=== PATIENT | female | born 1990 | race African-American/Black ===

== ENCOUNTER 2017-02-20 08:33 | Emergency (ER) | payer OTHER ==
[~2017-02-20] VITALS: Ht 165.1 cm; Wt 70.8 kg
--- NOTE | 2017-02-20 11:26 | ED HEADACHE COMPLAINT ---
History of Present Illness General Chief Complaint: Headache Stated Complaint: PATEL AND VOMITING SINCE LAST PM Source: patient Exam Limitations: no limitations Vital Signs & Intake/Output Vital Signs & Intake/Output Vital Signs Date Time Temp Pulse Resp B/P B/P Pulse O2 O2 Flow FiO2 Mean Ox Delivery Rate 02/20 1234 98.4 61 16 106/63 100 Room Air 02/20 1114 98 Room Air 02/20 0840 97.8 86 20 109/67 96 Room Air Allergies Coded Allergies: No Known Allergies (02/20/17) Reconcile Medications Butalb/Acetaminophen/Caffeine (Serddh-Erhpaokx-Zjfs 50-325-40) 50 MG-325 MG-40 MG TABLET 1-2 TAB PO Q8P PRN HEADACHE Cyclobenzaprine HCl 10 MG TABLET 1 TAB PO TID HEADACHE Sumatriptan Succinate (Imitrex) 50 MG TABLET 1 TAB PO AD HEADACHES Triage Note: PT TO ED C/O HEADACHE SINCE LAST NIGHT. TOOK TYLENOL PM WITH NO RELIEF. "IT'S NOT LIKE A MIGRAINE, I DON'T KNOW WHAT'S GOING ON, I WANT THEM TO DO A CAT SCAN". +PHOTOSENSITIVITY, +N/V. Triage Nurses Notes Reviewed? yes Onset: Abrupt Duration: day(s): Timing: recent history Quality/Severity: moderate, severe No Modifying Factors: none : No Patient currently breastfeeds: No HPI: 27-year-old female comes into the emergency room with complaints of headache for the past few days getting progressively worse. Pain is located on the top of her head. Sharp. She denies any falls or trauma. She reports some associated photophobia and phonophobia. Denies any vision loss. Denies any fever. She's had some associated nausea vomiting. She reports that she had a history of headaches when she was a child but she has not had any recently. Nothing seems to make the symptoms better. She took a Tylenol PM last night with no relief. She comes in for further evaluation and requesting CT scan of head. (Parvez Basilio) Past History Travel History Traveled to [place] past 21 day No Medical History Any Pertinent Medical History? none Surgical History Surgical History: Psychosocial History What is your primary language Belarusian Tobacco Use: Quit >30 days ago ETOH Use: denies use Illicit Drug Use: denies illicit drug use Family History Hx Contributory? No (Parvez Basilio) Review of Systems Review of Systems Constitutional: Reports: no symptoms. Eyes: Reports: no symptoms. Ears, Nose, Throat, Mouth: Reports: no symptoms. Respiratory: Reports: no symptoms. Cardiovascular: Reports: no symptoms. Gastrointestinal/Abdominal: Reports: see HPI. Genitourinary: Reports: no symptoms. Musculoskeletal: Reports: no symptoms. Skin: Reports: no symptoms. Neurological/Psychological: Reports: see HPI. Hematologic/Endocrine: Reports: no symptoms. Endocrine: Reports: no symptoms. Immunologic/Allergic: Reports: no symptoms. All Other Systems: Reviewed and Negative (Parvez Basilio) Physical Exam Physical Exam General Appearance: well developed/nourished, no apparent distress, alert, awake Head: atraumatic, normal appearance Eyes: Bilateral: normal appearance, PERRL, EOMI. Ears, Nose, Throat: normal ENT inspection, hearing grossly normal Neck: normal inspection, full range of motion Respiratory: normal breath sounds, no respiratory distress Cardiovascular: regular rate/rhythm Back: normal inspection Extremities: normal inspection, normal range of motion, no edema Psychiatric: awake, alert, oriented x 3 Cranial Nerves: normal hearing, normal speech, PERRL Coordination/Gait: normal finger to nose, normal gait Motor/Sensory: no motor/sensory deficits Skin: intact, normal color Core Measures Sepsis Present: No Sepsis Focused Exam Completed? No (Parvez Basilio) Progress Differential Diagnosis: carotid dissection, cav sinus thromb, cluster PATEL, encephalitis, IC mass/tumor, intracranial Hem., meningitis, migraine PATEL, musculoskeletal pain, sinusitis, SSS thrombosis, subarach. Hem., tension PATEL, temporal arteritis, TMJ syndrome, viral cephalgia Plan of Care: Orders Procedure Date/time Status COMPREHENSIVE METABOLIC PANEL 02/20 1126 Complete CBC WITHOUT DIFFERENTIAL 02/20 1126 Complete URINE 02/20 0844 Complete Laboratory Tests 02/20/17 1147: Anion Gap 8, Estimated GFR > 60, BUN/Creatinine Ratio 20.0, Glucose 98, Calcium 9.7, Total Bilirubin 1.9 H, AST 23, ALT 34, Alkaline Phosphatase 49, Total Protein 7.3, Albumin 4.3, Globulin 3.0, Albumin/Globulin Ratio 1.4, CBC w Diff NO MAN DIFF REQ, RBC 4.74, MCV 83.5, MCH 27.9, RDW 13.3, MPV 7.9, Gran % 57.9, Lymphocytes % 29.9, Monocytes % 8.8, Eosinophils % 3.1, Basophils % 0.3, Absolute Granulocytes 3.9, Absolute Lymphocytes 2.0, Absolute Monocytes 0.6, Absolute Eosinophils 0.2, Absolute Basophils 0, PUBS MCHC 33.5, Urine Test NEGATIVE Diagnostic Imaging: Viewed by Me: CT Scan. Discussed w/RAD: CT Scan. Radiology Impression: PATIENT: DAVID LANGFORD PRESENT AGE: 27 PATIENT ACCOUNT NO: [id number] : 89 LOCATION: [facility] ORDERING PHYSICIAN: Parvez BOLAÑOS SERVICE DATE: 02/20/17 EXAM TYPE : CAT - CT HEAD WO IV CONTRAST EXAMINATION: CT HEAD WITHOUT CONTRAST CLINICAL INFORMATION: 27-year-old woman with severe headache. COMPARISON: None TECHNIQUE: Contiguous axial imaging was performed from the skull base to vertex without intravenous administration of contrast. DLP: 611 mGy-cm FINDINGS: There is no evidence of acute intracranial hemorrhage or territorial infarction. No abnormal mass effect or midline shift is seen. Benoit to white matter differentiation is well preserved. No extra-axial fluid collections are identified. The ventricles are normal in size. There is no abnormal attenuation within the brain parenchyma. The osseous structures and soft tissues are normal. The mastoid air cells and visualized portions of the paranasal sinuses are well aerated. IMPRESSION: No acute intracranial pathology. DICTATED BY: Tonya Mackey MD DATE/ TIME DICTATED:02/20/171407 FRESH WORK INSPECTOR:DENNY DATE/TIME TRANSCRIBED: 02/20/171407 CONFIDENTIAL, DO NOT COPY WITHOUT APPROPRIATE AUTHORIZATION. < Electronically signed in Other Vendor System> SIGNED BY: Tonya Mackey MD 04/08 1415 Comments: 02/20/2017 2:59:54 PM Headache is significantly improved. Upon reevaluating the patient she was on her iPad. Symptoms are likely consistent with migraine type headache. Patient was prescribed medications to go home with. Follow-up with PCP. Return if any other concerns. Patient understands and agrees a plan of care. Patient was told that if her symptoms persist that she should get a follow-up appointment with a neurologist through her primary care doctor. (Marco AntonioParvez Sol) Departure Departure Disposition: HOME OR SELF CARE Condition: Stable Clinical Impression Primary Impression: Headache Referrals: Unknown (PCP/Family) Additional Instructions: Take Fioricet, sumatriptan, and Flexeril as needed for headache. Follow-up with neurologist if headaches persist. Follow-up with your PCP. Please go over all results of today's visit with your primary care doctor. Contact your primary care doctor to let them know you were here in the emergency room. There may be nonspecific findings which may not be related to your visit today here in the emergency room but may require further evaluation and chronic monitoring by your primary care doctor. If you had a laceration today the chance of foreign body always remains. You should follow-up with your primary care doctor for recheck in 3-5 days for a wound check. If you had an x-ray done there is a chance that a fracture could have been missed on initial read and you should follow-up with your primary care doctor for repeat x-rays if symptoms persist. If your blood pressure was elevated here in the emergency room please have rechecked by [facility] primary care doctor within the next 48. If you were prescribed a narcotic here in the emergency room or any type of controlled substances you're not allowed to drive while taking this medication or operate any type of heavy machinery. Narcotics can make you feel lightheaded dizziness nausea and can cause constipation. You may need to picker/puller a stool softener. Thank you for choosing [facility] emergency room. Please return to the emergency room immediately if you have any other concerns worsening of symptoms. Departure Forms: Customer Survey General Discharge Information Prescriptions: Current Visit Scripts Cyclobenzaprine HCl 1 TAB PO TID #20 TAB Sumatriptan Succinate (Imitrex) 1 TAB PO AD #9 TAB Butalb/Acetaminophen/Caffeine (Ycwepb-Lgprzsvk-Ttnk 50-325-40) 1-2 TAB PO Q8P PRN HEADACHE #20 TAB (Parvez Basilio) PA/NAIL GALVANIZER Co-Sign Statement Statement: ED Attending supervision documentation- I saw and evaluated the patient. I have also reviewed all the pertinent lab results and diagnostic results. I agree with the findings and the plan of care as documented in the PA's/NAIL GALVANIZER's documentation. x I have reviewed the ED Record and agree with the PA's/NAIL GALVANIZER's documentation. [] Additions or exceptions (if any) to the PAs/NAIL GALVANIZER's note and plan are summarized below: [] (Hugo ARMSTRONG,Thai)
[2017-02-20 11:59] LABS: ABSOLUTE BASOPHIL COUNT 0 /CUMM (0.0-0.2); ABSOLUTE EOSINOPHIL COUNT 0.2 /CUMM (0.0-0.7); ABSOLUTE GRANULOCYTE CT 3.9 /CUMM (1.4-6.5); ABSOLUTE MONOCYTE COUNT 0.6 /CUMM (0.10-0.60); BASOPHIL % 0.3 % (0.0-2.0); EOSINOPHIL % 3.1 % (0-5); GRANULOCYTE % 57.9 % (42.2-75.2); HEMATOCRIT 39.5 % (37-47); MEAN CORPUSCULAR HGB 27.9 PG (27.0-31.0); MEAN CORPUSCULAR HGB CONC 33.5 G/DL (33.0-37.0); MEAN CORPUSCULAR VOLUME 83.5 FL (81.0-99.0); MEAN PLATELET VOLUME 7.9 FL (7.4-10.4); PLATELET COUNT 264 /CUMM (130-400); RBC DISTRIBUTION WIDTH 13.3 % (11.5-14.5); RED BLOOD CELL CT 4.74 /CUMM (4.20-5.40); WHITE BLOOD CELL COUNT 6.7 /CUMM (4.8-10.8)
--- NOTE | 2017-02-20 14:12 | CT SCAN REPORT ---
EXAMINATION: CT HEAD WITHOUT CONTRAST CLINICAL INFORMATION: 27-year-old woman with severe headache. COMPARISON: None TECHNIQUE: Contiguous axial imaging was performed from the skull base to vertex without intravenous administration of contrast. DLP: 611 mGy-cm FINDINGS: There is no evidence of acute intracranial hemorrhage or territorial infarction. No abnormal mass effect or midline shift is seen. Benoit to white matter differentiation is well preserved. No extra-axial fluid collections are identified. The ventricles are normal in size. There is no abnormal attenuation within the brain parenchyma. The osseous structures and soft tissues are normal. The mastoid air cells and visualized portions of the paranasal sinuses are well aerated. IMPRESSION: No acute intracranial pathology.
[2017-02-20] MEDS ORDERED: BUTALB-ACETAMI1 EACH PO (14:33)
[2017-02-20] MEDS ORDERED: IMITREX50 M1 PO (14:33)
[2017-02-20] MEDS ORDERED: CYCLOBENZAPRINE10 M1 PO (14:33)
== END 2017-02-20 15:08 ==
LOC: ERH 08:33
PROVIDERS: Physician Assistant Medical
DX: R51 Headache (principal)
CPT/HCPCS: 81025; 96372; J1885